=== PATIENT | female | born 1950 | race Hispanic/Latino ===

== ENCOUNTER 2024-04-06 16:32 | Emergency (ER) | payer MEDICARE ==
[~2024-04-06] VITALS: Ht 165.1 cm; Wt 86.2 kg
[~2024-04-06 16:32] MED LIST: ALPR2TAB7 PO; AMLO10TA4 PO; DILT120T15 PO; FURO20TA4 PO; MELO-108 PO; OLME40TA70 PO; OXYC10TA48 PO; ROSU20TA98 PO
[2024-04-06] MEDS: ORPHENADRINE 60MG/2ML IM ONE (16:47)
[2024-04-06] MEDS: TRIAMCINOLONE ACETONIDE 40 MG/ML 1ML VIAL IM ONE (16:47)
--- NOTE | 2024-04-06 17:29 | ERN ---
General Chief Complaint: LOWER EXTREMITY EDEMA Stated Complaint: BLE SWELLING X 4 DAYS Time Seen by MD: 16:33 Source: patient History of Present Illness Initial Comments Patient is a 73-year-old female coming in to be evaluated for lower extremity edema. Patient states that he also has chronic back pain in his here for evaluation of that as well. Allergies: Coded Allergies: No Known Allergies (Unverified Allergy, Unknown, 02/17/24) Home Meds Reported Medications Meloxicam (Meloxicam) 15 Mg Tablet, 1 TAB PO DAILY PRN for MILD PAIN (1-3) 02/17/24 Oxycodone HCl (Oxycodone HCl) 10 Mg Tablet, 1 TAB PO Q8H PRN for MODERATE PAIN (4-6) 02/17/24 Alprazolam (Alprazolam) 2 Mg Tablet, 2 MG PO BID PRN for ANXIETY/AGITATION, TAB 02/17/24 Amlodipine Besylate (Norvasc) 10 Mg Tablet, 10 MG PO DAILY, TAB 02/17/24 Diltiazem HCl (Cardizem) 120 Mg Tablet, 180 MG PO DAILY, TAB 02/17/24 Olmesartan Medoxomil (Benicar) 40 Mg Tablet, 40 MG PO DAILY, TAB 02/17/24 Rosuvastatin Calcium (Rosuvastatin Calcium) 20 Mg Tablet, 20 MG PO DAILY, TAB 02/17/24 Furosemide (Furosemide) 20 Mg Tablet, 20 MG PO DAILY, TAB 02/17/24 Past Medical History Past Medical History: Diabetes-Type I, Hypertension Medical History Other: CHRONIC BACK PAIN Past Surgical History: None ROS Dictation CONSTITUTIONAL: No chills, no fever, no weakness, no diaphoresis, no malaise. HEAD/FACE: No signs of trauma. EENT: No eye pain, no blurred vision, no tearing, no double vision, no ear pain, no ear discharge, no nose pain, no nasal congestion, no throat pain, no throat swelling, no mouth pain. RESPIRATORY: No cough, no orthopnea, no SOB, no stridor, no wheezing. CARDIOVASCULAR: No chest pain, no edema, no palpitations, no syncope. GASTROINTESTINAL/ABDOMINAL: No abdominal pain, no constipation, no diarrhea, no nausea, no vomiting. GENITOURINARY: No abnormal discharge, no dysuria, no frequent urination, no hematuria. No complaints of pain in the genitals. MUSCULOSKELETAL: No back pain, no gout, no joint pain, no joint swelling, no muscle pain, no muscle stiffness, no neck pain. INTEGUMENTARY: No change in color, no change in hair/nails, no dryness, no lesion, no lumps, no rash. NEUROLOGICAL/PSYCH: No anxiety, not depressed, no emotional problem, no headache, no numbness, no pre-existing deficit, no history of seizures, no tremors, no weakness. HEMATOLOGIC/LYMPHATIC: Not anemic, no history of blood clots, no apparent bleeding, no bruising, glands not swollen. All Systems Negative, Except as Noted. Physical Exam Physical Exam Dictation VITAL SIGNS: Reviewed. GENERAL APPEARANCE: Alert, oriented x3, no acute distress, obese. HEAD AND FACE: Non-traumatic. EYES: PERRL, pink conjunctivas, eyelid no trauma, anterior chamber clear. EARS: Pinnas intact and no signs of trauma or erythema. Ear canals clear and no discharge. TMs no erythema. NOSE: No discharge, no bleeding. OROPHARYNX: Mouth normal, teeth no caries, tongue pink. Pharynx clear, no erythema. Tonsils no exudates, no abscesses noted. Mucous membrane moist. NECK: Supple, non-tender, no thyromegaly, no masses, no JVD, no bruits. BREAST: Deferred. CHEST: No tenderness, no crepitus, no paradoxical movement, no retractions. LUNGS: Clear, well-ventilated, symmetric, no rales, no wheezing, no rhonchi, no stridor, good breath sounds bilaterally. HEART: Regular rate, regular rhythm, no murmur, no gallops. VASCULAR: No peripheral edema. ABDOMEN: Soft, positive bowel sounds, nondistended, no guarding, nontender, no rebound, no masses no hepatomegaly, no splenomegaly, no Ocampo's sign, no hernias. RECTAL: Deferred. GENITAL: Deferred. NEUROLOGICAL: Normal speech, gross motor function intact, gross sensory function intact. MUSCULOSKELETAL: Neck nontender, full range of motion, back nontender, full range of motion. EXTREMITIES: Nontender, full range of motion. Bilateral pedal edema SKIN: Color pink, dry, no turgor, no rash, no lacerations, no abrasions, no contusions. LYMPHATICS: Deferred. MDM MDM: Differential diagnosis: Pedal edema, acute on chronic back pain Patient is a 73-year-old female coming in to be evaluated for lower extremity edema as well as chronic back pain. X-ray did not disclose acute findings. Patient will be discharged with diagnosis of chronic back pain with pedal edema. I advised her appropriate follow up with PCP in 1-2 days patient refused labora tory workup states he does not want to get poked. ED Course Orders Procedure Category Date Status Time Urinalysis LAB 04/06/24 Logged W/Microscopic 16:42 Orphenadrine Citrate PHA 04/06/24 Complete (Norflex) 17:00 Triamcinolone Acet PHA 04/06/24 Complete 40mg/Ml 1ml (Kenalog 17:00 Lumbar Spine 2-3vws RAD 04/06/24 Taken 16:42 Current Medications Medications (Trade) Dose Ordered Sig/Peggy Route PRN Reason Start Time Stop Time Status Last Admin Dose Admin Orphenadrine Citrate (Norflex) 60 mg ONCE ONCE IM 04/06/24 17:00 04/06/24 17:01 DC 04/06/24 16:47 Triamcinolone Acetonide (Kenalog 40) 40 mg ONCE ONCE IM 04/06/24 17:00 04/06/24 17:01 DC 04/06/24 16:47 Vital Signs Date Time Temp Pulse Resp B/P (MAP) Pulse Ox O2 Delivery O2 Flow Rate FiO2 04/06/24 17:50 98.2 56 16 158/72 99 Room Air* 0 21 04/06/24 16:45 56 16 146/55 98 Room Air* 0 21 04/06/24 16:33 98.2 61 16 135/73 99 Room Air 0 DX & DISP Disposition: Discharge Departure Impression: Primary Impression: Pedal edema Additional Impression: Acute on chronic back pain Condition: Stable Scripts Furosemide (Lasix) 20 Mg Tablet 1 TAB PO DAILY for 7 Days, #7 TAB 0 Refills Prov: FRANK HERNANDEZ MD 04/06/24 Methocarbamol (Robaxin) 750 Mg Tab 1 TAB PO BID for 5 Days, #10 TAB 0 Refills Prov: FRANK HERNANDEZ MD 04/06/24 Additional Instructions: FOLLOW-UP WITH PRIMARY CARE PROVIDER IN 1 TO 2 DAYS. TAKE MEDICATIONS DIRECTED HERE IN THE EMERGENCY ROOM. OKAY TO CONTINUE HOME MEDICATIONS UNLESS OTHERWISE DISCUSSED DURING YOUR VISIT IN THE EMERGENCY ROOM TODAY. RETURN TO YOUR NEAREST EMERGENCY ROOM IF SYMPTOMS WORSEN OR IF THERE IS NO IMPROVEMENT. CALL 911 IF YOU NEED IMMEDIATE ASSISTANCE. TAKE TYLENOL [id number] NEEDED AND IF NO CONTRAINDICATIONS ARE PRESENT. INCREASE ORAL HYDRATION. A WOUND CULTURE OR URINE CULTURE WAS ORDERED HERE IN THE EMERGENCY ROOM DEPARTMENT PLEASE FOLLOW-UP WITH PRIMARY CARE PROVIDER AND ADVISE THEM TO GET REPEAT PORTS FROM OUR FACILITY. IF YOU HAD ANY OTILIO WRAP/SPLINTS THAT WERE APPLIED HERE, PLEASE DO NOT REMOVE THEM UNTIL YOU SEE YOUR PRIMARY CARE OR SPECIALTY. Referrals: Referrals: BAKARI CRUM MD (PCP) Time of Disposition: 18:33 FRANK HERNANDEZ MD Apr 06, 2024 17:29
--- NOTE | 2024-04-06 17:30 | NUR ---
PATIENT ENCOURAGED TO PROVIDE URINE SAMPLE; PATIENT REFUSED AT PRESENT TIME
[2024-04-06] MEDS ORDERED: METH-662 PO (18:34)
[2024-04-06] MEDS ORDERED: FURO-152 PO (18:34)
[2024-04-06 18:40] VITALS: BP 156/70; PULSE 56; RESP 16; TEMP 98.2; O2SAT 99
--- NOTE | 2024-04-06 19:34 | HMCIMG ---
EXAM: LUMBAR SPINE 2-3VWS CLINICAL HISTORY: back pain COMPARISON:None. TECHNIQUE: AP lateral and L5-S1 spot images of the lumbar spine were obtained. FINDINGS: There is mildly sclerotic curvature of the spine is osteopenia of the bony structures. There is vertebral body height loss or fractures. Note is advanced calcified atherosclerotic vascular disease of the aorta. IMPRESSION: There are no acute findings.
== END 2024-04-06 18:40 | disposition home or self-care (01) ==
LOC: EDH 16:32
DX: R60.0 Localized edema (principal); G89.29 Other chronic pain; M54.50 Low back pain, unspecified; E11.9 Type 2 diabetes mellitus without complications; I10 Essential (primary) hypertension; Z79.899 Other long term (current) drug therapy
CPT/HCPCS: 99284; 72100; 96372 ×2; J3301; J2360